=== PATIENT | female | born 1995 | race Caucasian/White ===

== ENCOUNTER 2020-08-15 08:48 | Emergency (ER) | payer BC ==
--- OUTSIDE RECORDS SUMMARY | 2020-08-15 08:51 | XMS REPORT | Continuity of Care Document ---
:1995 Author Organization [facility] t Address [address] [place] [address] Dr. R[address] [place] [address] Care Team Providers Name Role Phone Edilberto Wharton Attending Clinician Problems This patient has no known problems. Allergies, Adverse Reactions, Alerts This patient has no known allergies or adverse reactions. Medications This patient has no known medications. Procedures This patient has no known procedures. Encounters Start End Encounter Admission Attending Care Care Encounter Source Date/Time Date/Time Type Type Clinicians Facility Department ID 2020-08-09 2020-08-09 Office ANDRE Quinones [id number] 14:20:56 15:04:56 Visit Yudi [facility] [id number] [place] [id number] [place] [phone] nal 044 Office Building One Results This patient has no known results.
[2020-08-15 09:47] LABS: Absolute Lymphocytes (CBC) 1.4 K/uL (0.7-4.9); Basophils % 0.3 % (0-1.3); Lymphocytes % 16.4 % (15.3-44.8); MPV 7.1 fL (7.6-11.3)
[2020-08-15 10:18] LABS: BUN Blood Urea Nitrogen 11 mg/dL (7-18); Bicarbonate 29 mmol/L (21-32); Glucose Level 95 mg/dL (74-106); Potassium 3.9 mmol/L (3.5-5.1); Sodium Level 141 mmol/L (136-145)
--- NOTE | 2020-08-15 11:23 | RAD REPORT ---
EXAM DESCRIPTION: Carlee Single View08/15/2020 10:35 am CLINICAL HISTORY: Palpitations COMPARISON: none FINDINGS: The lungs appear clear of acute infiltrate. The heart is normal size IMPRESSION: No acute abnormalities displayed
--- NOTE | 2020-08-15 11:29 | EDPHYS ---
Physician Documentation [facility] Name: Yvonne Morales Age: 25 yrs Sex: Female : 1995 Arrival Date: 08/15/2020 Time: 08:52 Bed 17 Private MD: ED Physician Del Ryan HPI: 08/15 09:13 This 25 yrs old Female presents to ER via Unassigned with complaints of kb Headache, Nausea, heart racing/fluttering. 09:13 The patient presents with a history of heart racing. Context: The symptoms occur at kb rest. Onset: The symptoms/episode began/occurred this morning. Duration: The patient or guardian reports multiple episodes, that are intermittent, with no pattern. Modifying factors: The symptoms are aggravated by nothing. The symptoms are alleviated by nothing. Associated signs and symptoms: Pertinent positives: palpitations, chills. Severity of symptoms: At their worst the symptoms were moderate in the emergency department the symptoms are unchanged. The patient has not experienced similar symptoms in the past. The patient has not recently seen a physician. Pt reports she was laying in bed this morning and her heart started pounding and racing. States it has come and go all morning. Has had covid and anxiety attacks in the past and this feels different. Also reports a feeling of hot and cold over the last week and waking up in sweat, but has not had fever. 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 - Social history:: Smoking status: Patient/guardian denies using. ROS: 09:15 Respiratory: Negative for shortness of breath, cough, wheezing, and pleuritic chest kb pain, Abdomen/GI: Negative for abdominal pain, nausea, vomiting, diarrhea, and constipation, MS/Extremity: Negative for injury and deformity, Skin: Negative for injury, rash, and discoloration, Neuro: Negative for headache, weakness, numbness, tingling, and seizure. 09:15 Cardiovascular: Positive for palpitations. 09:15 Constitutional: Positive for chills, Negative for fever. kb Exam: 09:15 Constitutional: This is a well developed, well nourished patient who is awake, alert, kb and in no acute distress. Head/Face: Normocephalic, atraumatic. Cardiovascular: Regular rate and rhythm with a normal S1 and S2. No gallops, murmurs, or rubs. No pulse deficits. Respiratory: Respirations even and unlabored. No increased work of breathing, no retractions or nasal flaring. Abdomen/GI: Soft, non-tender. No distention Skin: Warm, dry with normal turgor. Normal color. MS/ Extremity: Pulses equal, no cyanosis. Neurovascular intact. Full, normal range of motion. Neuro: Awake and alert, GCS 15, oriented to person, place, time, and situation. Moves all extremities. Normal gait. Vital Signs: 09:06 BP 110 / 53; Pulse 80; Resp 15; Temp 98.8; Pulse Ox 100% ; Weight 80.74 kg; Height 5 rb3 ft. 9 in. (175.26 cm); Pain 0/10; 10:00 BP 107 / 60; Pulse 75; Resp 14; Pulse Ox 100% ; rb3 11:00 BP 113 / 61; Pulse 76; Resp 13; Pulse Ox 100% ; rb3 09:06 Body Mass Index 26.29 (80.74 kg, 175.26 cm) rb3 MDM: 09:04 Patient medically screened. kb 09:13 Data reviewed: vital signs, nurses notes. Data interpreted: Pulse oximetry: on room air kb is 100 %. Interpretation: normal. 11:26 Counseling: I had a detailed discussion with the patient and/or guardian regarding: the kb historical points, exam findings, and any diagnostic results supporting the discharge/admit diagnosis, lab results, radiology results, the need for outpatient follow up, a family practitioner, to return to the emergency department if symptoms worsen or persist or if there are any questions or concerns that arise at home. 08/15 09:12 Order name: CBC with Diff; Complete Time: 09:49 kb 08/15 09:12 Order name: Basic Metabolic Panel; Complete Time: 10:26 kb 08/15 09:12 Order name: EKG; Complete Time: 09:13 kb 08/15 09:12 Order name: EKG - Nurse/Tech; Complete Time: 10:02 kb 08/15 09:12 Order name: Chest Single View XRAY; Complete Time: 11:25 kb 08/15 09:12 Order name: TSH; Complete Time: 10:26 kb 08/15 09:12 Order name: IV Start; Complete Time: 09:50 kb Administered Medications: No medications were administered Disposition: 08/16 07:20 Co-signature as Attending Physician, Del Ryan MD I agree with the assessment and kdr plan of care. Disposition: 08/15/20 11:28 Discharged to Home. Impression: Palpitations. - Condition is Stable. - Discharge Instructions: Palpitations, Peos-kh-Chyz. - Medication Reconciliation Form, Thank You Letter, Antibiotic Education, Prescription Opioid Use form. - Follow up: Emergency Department; When: As needed; Reason: Worsening of condition. Follow up: Private Physician; When: 2 - 3 days; Reason: Recheck today's complaints, Continuance of care, Re-evaluation by your physician. Signatures: Dispatcher [employer] EDMS Yokasta Hair, NAVIGATION OFFICER-C NAVIGATION OFFICER-Del Pabon MD MD kdr Barber, Rebecca RN RN rb3 Corrections: (The following items were deleted from the chart) 08/15 09:16 09:15 Constitutional: Negative for fever, chills, and weight loss, Respiratory: kb Negative for shortness of breath, cough, wheezing, and pleuritic chest pain, Abdomen/GI: Negative for abdominal pain, nausea, vomiting, diarrhea, and constipation, MS/Extremity: Negative for injury and deformity, Skin: Negative for injury, rash, and discoloration, Neuro: Negative for headache, weakness, numbness, tingling, and seizure, kb 11:44 11:28 08/15/2020 11:28 Discharged to Home. Impression: Palpitations. Condition is rb3 Stable. Forms are Medication Reconciliation Form, Thank You Letter, Antibiotic Education, Prescription Opioid Use. Follow up: Emergency Department; When: As needed; Reason: Worsening of condition. Follow up: Private Physician; When: 2 - 3 days; Reason: Recheck today's complaints, Continuance of care, Re-evaluation by your physician. kb
--- NOTE | 2020-08-15 11:29 | ER ---
Nurse's Notes [facility] Name: Yvonne Morales Age: 25 yrs Sex: Female : 1995 Arrival Date: 08/15/2020 Time: 08:52 Bed 17 Private MD: Diagnosis: Palpitations Presentation: 08/15 09:06 Chief complaint: Patient states: Heart started racing around 0530 this morning. C/o rb3 headache, nausea, and feeling lightheaded. Coronavirus screen: At this time, the client does not indicate any symptoms associated with coronavirus-19. Ebola Screen: Patient denies travel to an Ebola-affected area in the 21 days before illness onset. Initial Sepsis Screen: Does the patient meet any 2 criteria? No. Patient's initial sepsis screen is negative. Does the patient have a suspected source of infection? No. Patient's initial sepsis screen is negative. Risk Assessment: Do you want to hurt yourself or someone else? Patient reports no desire to harm self or others. Onset of symptoms was August 15, 2020 at 05:35. 09:06 Method Of Arrival: Ambulatory rb3 09:06 Acuity: SHANA 3 rb3 Triage Assessment: 09:06 General: Appears in no apparent distress. Behavior is calm, cooperative. Pain: Denies rb3 pain. Neuro: Level of Consciousness is awake, alert, obeys commands, Oriented to person, place, time, situation, Reports headache Feels lightheaded. Cardiovascular: Patient's skin is warm and dry. Respiratory: Airway is patent Respiratory effort is even, unlabored, Respiratory pattern is regular, symmetrical. GI: Reports nausea. : No signs and/or symptoms were reported regarding the genitourinary system. 09:06 Headache History: The patient has had previous headaches and this one is similar to rb3 previous episodes. 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 - Social history:: Smoking status: Patient/guardian denies using. Screenin:06 Abuse screen: Denies threats or abuse. Nutritional screening: No deficits noted. rb3 Tuberculosis screening: No symptoms or risk factors identified. Fall Risk Fall in past 12 months (25 points). No secondary diagnosis (0 pts). No IV (0 pts). Ambulatory Aid- None/Bed Rest/Nurse Assist (0 pts). Gait- Normal/Bed Rest/Wheelchair (0 pts) Mental Status- Oriented to own ability (0 pts). Total Berry Fall Scale indicates Low Risk Score (25-44 pts). Fall prevention measures have been instituted. Side Rails Up X 2 Placed close to Nursing Station 1:1 attendant Assigned to Pt. Frequent Obs/Assesments occuring As available Patient and Family Educated on Fall Prevention Program and strategies. Assessment: 09:06 General: See triage assessment. rb3 10:06 Reassessment: Patient appears in no apparent distress at this time. No changes from rb3 previously documented assessment. 11:00 Reassessment: Patient appears in no apparent distress at this time. Patient and/or rb3 family updated on plan of care and expected duration. Pain level reassessed. Patient is alert, oriented x 3, equal unlabored respirations, skin warm/dry/pink. Patient denies pain at this time. Vital Signs: 09:06 BP 110 / 53; Pulse 80; Resp 15; Temp 98.8; Pulse Ox 100% ; Weight 80.74 kg; Height 5 rb3 ft. 9 in. (175.26 cm); Pain 0/10; 10:00 BP 107 / 60; Pulse 75; Resp 14; Pulse Ox 100% ; rb3 11:00 BP 113 / 61; Pulse 76; Resp 13; Pulse Ox 100% ; rb3 09:06 Body Mass Index 26.29 (80.74 kg, 175.26 cm) rb3 ED Course: 08:52 Patient arrived in ED. am2 09:00 Yokasta Hair FNP-C [facility]. kb 09:00 Del Ryan MD is Attending Physician. kb 09:06 Arm band placed on right wrist. rb3 09:06 Patient has correct armband on for positive identification. Bed in low position. Call rb3 light in reach. Side rails up X 1. pvc monitor on. Pulse ox on. NIBP on. Warm blanket given. 09:18 Dulce Escamilla, RN is Primary Nurse. rb3 09:50 Initial lab(s) drawn, by me, sent to lab. Inserted saline lock: 20 gauge in left sr5 antecubital area, using aseptic technique. Blood collected. 10:01 Triage completed. rb3 10:34 Chest Single View XRAY In Process Unspecified. EDMS 11:42 No provider procedures requiring assistance completed. IV discontinued, intact, rb3 bleeding controlled, No redness/swelling at site. Pressure dressing applied. Administered Medications: No medications were administered Outcome: 11:28 Discharge ordered by . jasmin 11:42 Discharged to home ambulatory. rb3 11:42 Condition: stable 11:42 Discharge instructions given to patient, Instructed on discharge instructions, follow up and referral plans. Demonstrated understanding of instructions, follow-up care, Prescriptions given X none 11:44 Patient left the ED. rb3 Signatures: Dispatcher [employer] EDMD Yokasta Hair FNP-C FNP-Sami Mccormick RN RN sr5 Elsa Rangel am2 Dulce Escamilla, RN RN rb3
[2020-08-15 12:09] VITALS: TEMP 98.8; O2SAT 100
[2020-08-15 12:11] VITALS: BP 113/61
--- NOTE | 2020-08-16 15:03 | EKG ---
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
== END 2020-08-15 11:44 | disposition home or self-care (01) ==
LOC: ER 08:48
DX: R00.2 Palpitations (principal); Z86.16 Personal history of COVID-19
CPT/HCPCS: 36415; 71045; 80048; 84443; 85025; 93005; 99284